=== PATIENT | female | born 1990 | race African-American/Black ===

== ENCOUNTER 2017-06-22 09:51 | Emergency (ER) | payer OTHER ==
[~2017-06-22] VITALS: Ht 165.1 cm; Wt 117.9 kg
[2017-06-22] MEDS ORDERED: TESSALON PERLE100 MG PO (10:15)
[2017-06-22] MEDS ORDERED: IBUPROFEN 600600 M1 PO (10:15)
[2017-06-22 10:31] VITALS: BP 143/81
== END 2017-06-22 10:32 | disposition home or self-care (01) ==
LOC: ER 09:51
DX: J06.9 Acute upper respiratory infection, unspecified (principal); F17.210 Nicotine dependence, cigarettes, uncomplicated; F10.99 Alcohol use, unspecified with unspecified alcohol-induced disorder; Z90.49 Acquired absence of other specified parts of digestive tract

== ENCOUNTER 2020-04-17 09:08 | Emergency (ER) | payer OTHER ==
[~2020-04-17] VITALS: Ht 165.1 cm; Wt 103.9 kg
[~2020-04-17 09:08] MED LIST: IBUPROFEN 600600 M1 PO; TESSALON PERLE100 MG PO
[2020-04-17 09:22] LABS: URINE BILIRUBIN NEGATIVE (Negative); URINE BLOOD NEGATIVE (Negative); URINE CLARITY CLEAR; URINE COLOR YELLOW; URINE GLUCOSE-RANDOM* NEGATIVE (Negative); URINE KETONES NEGATIVE (Negative); URINE LEUKOCYTES-REFLEX NEGATIVE (Negative); URINE NITRITE-REFLEX NEGATIVE (Negative); URINE PROTEIN (DIPSTICK) NEGATIVE (Negative); URINE UROBILINOGEN 0.2 E.U./dl (0.2-1.0)
[2020-04-17] MEDS ORDERED: VENTOLIN HFA 1818 GM INH (10:52)
[2020-04-17 11:14] VITALS: BP 131/69
== END 2020-04-17 11:15 | disposition home or self-care (01) ==
LOC: ER 09:08
PROVIDERS: Emergency Medicine
DX: A59.01 Trichomonal vulvovaginitis (principal); F17.210 Nicotine dependence, cigarettes, uncomplicated; Z90.49 Acquired absence of other specified parts of digestive tract; Z79.1 Long term (current) use of non-steroidal anti-inflammatories (NSAID); Z79.899 Other long term (current) drug therapy

== ENCOUNTER → 2020-12-18 | Emergency (ER) | payer OTHER ==
[~2020-12-18] MED LIST changes: +VENTOLIN HFA 1818 GM INH
[2020-12-18 18:43] LABS: URINE BILIRUBIN NEGATIVE (Negative); URINE BLOOD NEGATIVE (Negative); URINE CLARITY CLEAR; URINE COLOR YELLOW; URINE GLUCOSE-RANDOM* NEGATIVE (Negative); URINE KETONES NEGATIVE (Negative); URINE LEUKOCYTES-REFLEX NEGATIVE (Negative); URINE NITRITE-REFLEX NEGATIVE (Negative); URINE PROTEIN (DIPSTICK) NEGATIVE (Negative)
[2020-12-18 18:53] VITALS: BP 129/85
== END ==
LOC: ER 18:29
PROVIDERS: Nurse Practitioner Family
DX: R10.31 Right lower quadrant pain (principal); F17.210 Nicotine dependence, cigarettes, uncomplicated; Z90.49 Acquired absence of other specified parts of digestive tract